=== PATIENT | female | born 1955 | race African-American/Black ===

== ENCOUNTER 2019-05-17 06:52 | Day surgery (SDC) | payer MEDICARE ==
[2019-05-16 10:30] VITALS: BMI 45.4
--- NOTE | 2019-05-17 08:57 | OP ---
DATE OF PROCEDURE: 05/17/2019 REASON FOR PROCEDURE: Dysphagia, odynophagia, hematemesis. PROCEDURE PERFORMED: EGD with esophageal dilation with balloon less than 30 mm. DESCRIPTION OF PROCEDURE: After the risks and benefits of the procedure were explained to the patient including risks of bleeding, infection, perforation, reactions to anesthesia, aspiration and/or pain, informed consent was obtained. The patient was then taken to the endoscopy suite, where deep sedation was administered via propofol and anesthesia support. Once the patient was placed in the left lateral decubitus position and sedation was administered with good sedation achieved, the standard gastroscope was introduced into the mouth with intubation of the esophagus, stomach, and the proximal small intestines with the findings listed below. The patient tolerated the procedure well with no immediate perioperative complications. Upon conclusion of the procedure, all equipment was removed from the patient and she was transferred to Day Stay in satisfactory condition. FINDINGS: Esophagus; normal-appearing mucosa was seen in both the proximal and mid esophagus; however, a large hiatal hernia and a possible esophageal stricture were seen in the distal esophagus. The esophageal stricture was located at approximately 33 cm past the incisors that was easily traversed with the standard gastroscope. Using a TTS CRE esophageal balloon, it was dilated to a maximum diameter of 18 mm in size with no significant change in the esophageal mucosa afterwards. The diaphragmatic pinch was seen at 40 cm while the gastroesophageal junction was well seen at 34 cm denoting a 6 cm hiatal hernia. There were also mild erosive changes seen in the distal esophagus at the gastroesophageal junction, extending proximally around 5 to 10 mm, but not extending between folds, otherwise there was no evidence of ulcerations, mass lesions, or active/recent bleeding. Stomach; normal-appearing mucosa was seen in the gastric fundus, body, greater curvature, antrum, and incisura. On gastric retroflexion, a large hiatal hernia was again visualized within the gastric cardia with possible paraesophageal component, but difficult to tell. Otherwise, there was no evidence of erosions, ulcerations, mass lesions, Pal's erosions, or active/recent bleeding. Duodenum; normal-appearing mucosa was seen in both the duodenal bulb and second portion of the duodenum. There was no evidence of erosions, ulcerations, mass lesions, or active/recent bleeding. IMPRESSION: 1. Large hiatal hernia (6 cm) with tortuosity of the distal esophagus, likely contributing to her dysphagia. 2. LA grade A reflux mediated erosive esophagitis. 3. Possible distal esophageal stricture at 33 cm, dilated to 18 mm in diameter with no significant change of the esophageal mucosa. 4. No evidence of active/recent bleeding. RECOMMENDATIONS: 1. We will continue the patient on pantoprazole 40 mg daily for erosive esophagitis. 2. We would refer the patient to the General Surgery Service for possible surgical correction of a large hiatal hernia generating symptoms. 3. We would proceed with an esophageal barium swallow for further delineation of the anatomy and possible paraesophageal component to her hiatal hernia. 4. Recommend adequate chewing of food prior to swallowing. 5. Would have the patient follow up in the GI Clinic in 6 weeks for further followup of her dysphagia and hematemesis. Job ID: [id number]
[2019-05-17] MEDS ORDERED: Lidocaine 1% PF 5 ML VIAL ONE (10:47)
[2019-05-17] MEDS ORDERED: PROPOFOL 200 MG/20 ML VIAL ONE (10:47)
== END 2019-05-17 09:40 | disposition home or self-care (01) ==
LOC: SDC 06:52
PROVIDERS: ATTEND Internal Medicine
PROC: 0D758ZZ Dilation of Esophagus, Via Natural or Artificial Opening Endoscopic (ICD-10-PCS; principal; 2019-05-17)
DX: R13.10 Dysphagia, unspecified (principal); K21.0 Gastro-esophageal reflux disease with esophagitis; K44.9 Diaphragmatic hernia without obstruction or gangrene; K92.0 Hematemesis; I10 Essential (primary) hypertension; E78.5 Hyperlipidemia, unspecified; E11.9 Type 2 diabetes mellitus without complications; J30.2 Other seasonal allergic rhinitis; M19.90 Unspecified osteoarthritis, unspecified site; F17.200 Nicotine dependence, unspecified, uncomplicated; E66.01 Morbid (severe) obesity due to excess calories; Z68.41 Body mass index [BMI] 40.0-44.9, adult; Z79.82 Long term (current) use of aspirin; Z79.899 Other long term (current) drug therapy

== ENCOUNTER 2019-06-26 13:00 | Outpatient (CLI) | payer OTHER | END 2019-06-26 13:01 | disposition home or self-care (01) | LOC: DTY/OP 13:00 | PROVIDERS: ATTEND Specialist | DX: Z01.818 Encounter for other preprocedural examination (principal); E66.01 Morbid (severe) obesity due to excess calories | CPT/HCPCS: 97802 ==

== ENCOUNTER 2019-07-13 03:53 | Outpatient (CLI) | payer MEDICARE, OTHER ==
[2019-07-13 17:38] LABS: SARS-CoV-2 MS2 Positive; SARS-CoV-2 N Gene Negative; SARS-CoV-2 S Gene Negative; SARS-CoV-2 orf1ab Negative
== END 2019-07-13 03:54 | disposition home or self-care (01) ==
LOC: ERS 03:53
PROVIDERS: ATTEND Specialist
DX: Z01.812 Encounter for preprocedural laboratory examination (principal); Z11.59 Encounter for screening for other viral diseases
CPT/HCPCS: 36415; 80053; 80061; 82306; 82607; 82728; 82746; 83036; 83540; 83970; 84425; 84436; 84443; 84480; 85025; 87635; U0003

== ENCOUNTER 2019-07-18 10:10 | Outpatient (CLI) | payer MEDICARE ==
--- NOTE | 2019-07-18 12:16 | RAD ---
EXAM: XR UGI Single Contrast No Air PROVIDED CLINICAL HISTORY: Hiatal hernia. Gastroesophageal reflux. Morbid obesity. COMPARISON: None FINDINGS: A single contrast upper GI was performed as requested. Normal primary esophageal peristalsis is demon strated without evidence of tertiary contractions. No focal area of narrowing is seen in the esophagus. A small hiatal hernia is present. The stomach is incompletely distended but otherwise grossly within normal limits. The duodenal bulb, duodenum, and visualized proximal small bowel demonstrate a normal appearance. No gastroesophageal reflux was demonstrated during this exam. IMPRESSION: 1. Small hiatal hernia. No gastroesophageal reflux was demonstrated during the exam.
== END 2019-07-18 10:11 | disposition home or self-care (01) ==
LOC: RAD 10:10
PROVIDERS: ATTEND Specialist
DX: E66.01 Morbid (severe) obesity due to excess calories (principal); K44.9 Diaphragmatic hernia without obstruction or gangrene
CPT/HCPCS: 74240

== ENCOUNTER 2019-08-23 11:13 | Inpatient (IN) | payer MEDICARE ==
[2019-08-30 11:15] VITALS: BMI 46.5
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
[2019-09-06] MEDS ORDERED: Bupivacaine 0.25% HCL 30 ML VIAL ONE (07:22)
[2019-09-06] MEDS ORDERED: Lidocaine 1% w/Epinephrine 1:100K 20 ML VIAL ONE (07:23)
[2019-09-06] MEDS ORDERED: Acetaminophen 500 MG TAB ONE (07:32)
[2019-09-06] MEDS ORDERED: Heparin 5,000 UNITS/ML VIAL ONE (07:32)
[2019-09-06] MEDS ORDERED: Scopolamine 1.5 mg/72 hour Patch ONE (07:33)
[2019-09-06] MEDS ORDERED: SUGAMMADEX SODIUM 500 MG/5 ML VIAL ONE (07:43)
[2019-09-06] MEDS ORDERED: Fentanyl 100 MCG/2 ML VIAL ONE ×2 (07:43→12:05)
[2019-09-06] MEDS ORDERED: Rocuronium Bromide 50 MG/5 ML VIAL ONE (10:24)
[2019-09-06] MEDS ORDERED: Rocuronium Bromide 10 MG/ML (10ML VIAL) ONE (10:52)
[2019-09-06] MEDS ORDERED: PROPOFOL 200 MG/20 ML VIAL ONE (10:52)
[2019-09-06] MEDS ORDERED: Dexamethasone 20 MG/5 ML VIAL ONE (10:52)
[2019-09-06] MEDS ORDERED: Ondansetron PF 4 MG/2 ML Vial ONE ×2 (10:52→11:46)
[2019-09-06] MEDS ORDERED: Ketorolac Tromethamine 30 MG/ML VIAL ONE (10:52)
[2019-09-06] MEDS ORDERED: Lidocaine 1% PF 5 ML VIAL ONE (10:52)
[2019-09-06] MEDS ORDERED: PHENYLEPHRINE-NS 100 MCG/ML 10 ML SYRINGE ONE (10:52)
[2019-09-06] MEDS ORDERED: Morphine 2 MG/ML VIAL SLOW IVP PRN (11:46)
[2019-09-06] MEDS ORDERED: Promethazine HCl 25 MG/ML VIAL ONE (11:46)
[2019-09-06] MEDS ORDERED: Dextrose 50% Abboject 50 ML SYRINGE SLOW IVP PRN (11:46)
[2019-09-06] MEDS ORDERED: Hydrocodone-Acetamin 15 ML UDCUP PO PRN (11:46)
[2019-09-06] MEDS ORDERED: Morphine 4 MG/ML VIAL SLOW IVP PRN (11:46)
[2019-09-06] MEDS ORDERED: Ondansetron PF 4 MG/2 ML Vial IVP PRN (11:46)
[2019-09-06] MEDS ORDERED: hydrALAZINE 20 MG/ML VIAL SLOW IVP PRN (11:46)
[2019-09-06] MEDS ORDERED: diphenhydrAMINE 50 MG/ML VIAL IVP PRN (11:46)
[2019-09-06] MEDS ORDERED: HumaLOG 300 UNITS/3 ML VIAL SC PRN (11:46)
[2019-09-06] MEDS ORDERED: Dextrose 5% in Water 1,000 ML IV PRN (11:46)
[2019-09-06] MEDS ORDERED: Ondansetron ODT 8 MG TAB SL PRN (11:49)
[2019-09-06] MEDS ORDERED: Ondansetron ODT 8 MG TAB PO PRN (11:49)
[2019-09-06] MEDS: Ketorolac Tromethamine 30 MG/ML VIAL IVP SCH ×2 (13:03→18:09)
--- NOTE | 2019-09-06 14:55 | OP ---
DATE OF PROCEDURE: 09/06/2019 PREOPERATIVE DIAGNOSES: 1. Metabolic syndrome. 2. Morbid obesity with 294 pounds and 49 BMI. 3. Gastroesophageal reflux disease. 4. Esophageal stricture status post dilatation by GI. 5. Diabetes mellitus. 6. Hypertension. 7. Asthma. 8. Hiatal hernia. PROCEDURE PERFORMED: 1. Laparoscopic hiatal hernia repair. 2. Laparoscopic Carlos-en-Y gastric bypass, 150 cm Carlos limb antecolic, 25 mm EEA stapler, checked under water without leak. NOC ENGINEER: Mary Alba, certified environmental engineering assistant. ESTIMATED BLOOD LOSS: Less than 10 mL. BLOOD TRANSFUSION: None. FINDINGS: The liver was malleable and floppy and not a problem. No other gross abnormalities noted. DESCRIPTION OF PROCEDURE: The patient was taken to the operating room where under general anesthesia, abdomen was prepared with ChloraPrep and draped in routine fashion. Local anesthetic with 0.5% Marcaine 30 mL mixed with 2% Xylocaine with epinephrine 20 mL mixture was infiltrated into the skin and subcutaneous tissue about all operative sites. Supraumbilical midline incision made. Pneumoperitoneum to 15 mmHg was obtained with a Veress needle, replacing with a 5 port, video laparoscope inserted. Bilateral upper abdominal incisions made at subcostal lines, left and right, placing a 15 and 12 mm port respectively. 5 mm port was placed in left lateral subcostal. Omentum split in the midline to the left of the falciform ligament up to the colon and reflected cephalad. Ligament of Treitz identified, and about 20 cm from the ligament of Treitz, the small bowel was divided with a ADELAIDA white load and the mesentery divided with the ADELAIDA white load. Hemostasis was gained with cautery. The Carlos limb was devascularized, taking down the mesentery adjacent involved the small bowel about 5 cm. The Carlos limb was then measured 150 cm and a jejunojejunostomy performed with 3 fires of Endo ADELAIDA white load stapler. Mesenteric defect closed with 3-0 Vicryl. The Carlos limb was then placed superiorly between the omental split and the omentum was directed caudally as the patient was placed in reverse Trendelenburg. We then placed the liver retractor through the subxiphoid incision using the Kannan liver retractor and Kannan arm. Liver was viable and not fatty. Hiatal hernia was identified. The left and right crura dissected free circumferentially using the LigaSure, taken down mediastinal adhesions. Once the stomach was reduced into the abdominal cavity, and at least 4 to 5 cm of esophagus was in the abdominal cavity and the posterior crura identified. Two posterior crural sutures of 0 Ethibond placed with the Endo suture passer. Adequate space was left in the hiatus to prevent dysphagia. Gastric bypass was then undertaken. Lesser sac was identified about 5 cm from the GE junction in between 2 major veins of the gastrohepatic ligament, taken down with the LigaSure and the lesser sac entered. Posterior stomach identified and all orogastric tubes removed and then the ADELAIDA blue load stapler fired transversely, creating the initial fire at the gastric pouch. Once this was completed, an opening made in the stomach near the greater curvature just laterally inferior to the initial fire staple line. An opening made in the stomach and a 25 mm anvil placed, attached to a suture, placed up to the gastric pouch. This suture was then passed through the suture passer, which was directed through the opening in the stomach up to the gastric pouch anterior to the staple line, where a small incision was made using cutting hook current, bringing the anvil out of the stomach, grasping the suture and properly placing it out of the stomach. The defect in the stomach was then closed with 2 fires of the ADELAIDA blue load stapler and good closure with hemostatic was noted. At this point, the gastric pouch was formed by several fires of the blue load ADELAIDA stapler, angling the stapler vertically, 4 cm away from the angle of His left lateral, completely dividing the stomach, creating the gastric pouch. Once this was completed, the Carlos limb was brought up into position and an opening made in the Carlos limb devascularized segment and a 25-mm EEA stapling device placed through the left upper quadrant 15-mm port site and directed into the stomach, properly positioned, and the spike brought out through the antimesenteric border under direct visualization, visualizing the orange portion of the stapler. The spike was removed from the anvil and gastric pouch and these were mated within the proper position and stapler approximated with a torque fire range, fired and released, and removed and complete donuts noted. Good anastomosis noted. The open end of the bowel was then divided with a ADELAIDA white load stapler, leaving a well-vascularized Carlos limb. Once this was accomplished, the segment of bowel was removed and discarded. Three sutures were placed antitension 3-0 Vicryl, 1 right anterior lateral, the other left anterior lateral and left posterior lateral, securing seromuscular approximation of the stomach pouch in the jejunum. Anesthesia then placed orogastric tube down to the gastric pouch, passed into anastomosis of the jejunum and jejunum was clamped with a vascular clamp and the patient placed in relatively flat position and stomach pouch inflated with air through an orogastric tube, and the small bowel and stomach distended and checked under water and there was no leak. Orogastric tube was removed. Good hemostasis noted. Liver retractor removed. Irrigant and pneumoperitoneum evacuated after the 15-mm port site approximated with 0 Vicryl and GraNee needle device, [id number]. All instruments were removed and all skin incisions were closed with subcu suture of 4-0 Monocryl after irrigating the wounds copiously with saline solution. [place] glue applied. The patient tolerated the procedure well. Job ID: [id number]
[2019-09-06] MEDS: Lactated Ringer's 1,000 ML IV SCH (15:40)
[2019-09-06] MEDS ORDERED: Enoxaparin Sodium 40 MG/0.4 ML SYRINGE SC SCH (21:00)
[2019-09-07] MEDS: Ketorolac Tromethamine 30 MG/ML VIAL IVP SCH ×4 (00:03→17:08)
[2019-09-07] MEDS: Lactated Ringer's 1,000 ML IV SCH ×4 (00:22→14:28)
[2019-09-07 05:30] LABS: #Lymphocytes 1.4 thou/uL (1.20-3.40); #Monocytes 0.6 thou/uL (0.11-0.59); #Neutrophils 9.5 thou/uL (1.40-6.50); %Basophils 0.1 % (0.0-1.0); %Lymphocytes 12.2 % (21.0-51.0); %Monocytes 4.8 % (0.0-10.0); %Neutrophils 82.9 % (42.0-75.0); Hemoglobin 11.7 g/dL (12.0-16.0); Mean Corpuscular HGB CONC 30.8 g/dL (32.0-36.0); Mean Corpuscular Hemoglobin 29.1 pg (27.0-31.0); Mean Corpuscular Volume 94.4 fL (78.0-98.0); Mean Platelet Volume 8.8 fL (7.4-10.4); Platelet Count 234 thou/uL (130-400); RBC Distribution Width 13.9 % (11.5-14.5); Red Blood Cell (RBC) Count 4.02 mill/uL (4.20-5.40); White Blood Cell (WBC) Count 11.4 thou/uL (4.8-10.8)
[2019-09-07 05:56] LABS: Anion Gap 13 mmol/L (10-20); BUN (Urea Nitrogen) 38 mg/dL (9.8-20.1); Calc. Creatinine Clearance 71 mL/min (70-130); Carbon Dioxide 25 mmol/L (23-31); Chloride 104 mmol/L (98-107); Estimated GFR-MDRD 38; Glucose 122 mg/dL (80-115); Potassium 4.3 mmol/L (3.5-5.1); Sodium 138 mmol/L (136-145)
[2019-09-07] MEDS ORDERED: Pantoprazole 40 MG VIAL IVP SCH (09:00)
[2019-09-07] MEDS: Acetaminophen 500 MG TAB PO PRN ×2 (10:14→16:26)
[2019-09-07] MEDS: traMADol HCl 50 MG TAB PO PRN ×2 (10:14→16:22)
[2019-09-07 16:16] VITALS: BP 107/67; TEMP 98
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
== END 2019-09-07 19:55 | disposition home or self-care (01) | DRG 621 ==
LOC: SURG A 09-06 06:54
PROVIDERS: ADMIT Specialist; ATTEND Specialist
PROC: 0D164Z9 Bypass Stomach to Duodenum, Percutaneous Endoscopic Approach (ICD-10-PCS; principal; 2019-09-06)
PROC: 0BQT4ZZ Repair Diaphragm, Percutaneous Endoscopic Approach (ICD-10-PCS; 2019-09-06)
DX: E66.01 Morbid (severe) obesity due to excess calories (principal); E88.81 Metabolic syndrome and other insulin resistance; K21.9 Gastro-esophageal reflux disease without esophagitis; K22.2 Esophageal obstruction; J45.909 Unspecified asthma, uncomplicated; K59.00 Constipation, unspecified; E78.5 Hyperlipidemia, unspecified; E11.22 Type 2 diabetes mellitus with diabetic chronic kidney disease; I12.9 Hypertensive chronic kidney disease with stage 1 through stage 4 chronic kidney disease, or unspecified chronic kidney disease; N18.9 Chronic kidney disease, unspecified; K44.9 Diaphragmatic hernia without obstruction or gangrene; Z68.42 Body mass index [BMI] 45.0-49.9, adult
CPT/HCPCS: 36415; 36416; 80048; 85025; 93005; 93010; 94760; C9113; J0694; J1100; J1644; J1650; J1885; J2405; J2550; J2704; J3010; S0020

== ENCOUNTER 2019-09-01 06:20 | Outpatient (CLI) | payer MEDICARE, OTHER ==
[2019-09-01 15:42] LABS: Anion Gap 17 mmol/L (10-20); BUN (Urea Nitrogen) 28 mg/dL (9.8-20.1); Calc. Creatinine Clearance 0 mL/min (70-130); Calcium 10.5 mg/dL (7.8-10.44); Carbon Dioxide 25 mmol/L (23-31); Chloride 105 mmol/L (98-107); Estimated GFR-MDRD 48; Glucose 134 mg/dL (80-115); Potassium 4.7 mmol/L (3.5-5.1); Sodium 142 mmol/L (136-145)
[2019-09-02 12:14] LABS: SARS-CoV-2 MS2 Positive; SARS-CoV-2 N Gene Negative; SARS-CoV-2 S Gene Negative; SARS-CoV-2 orf1ab Negative
== END 2019-09-01 06:21 | disposition home or self-care (01) ==
LOC: LABBT 06:20
PROVIDERS: ATTEND Specialist
DX: Z01.812 Encounter for preprocedural laboratory examination (principal); Z11.59 Encounter for screening for other viral diseases; E66.01 Morbid (severe) obesity due to excess calories
CPT/HCPCS: 80048; U0003; 87635

== ENCOUNTER 2020-01-23 06:43 | Outpatient (CLI) | payer MEDICARE ==
[2020-01-23 14:47] LABS: #Eosinphils 0.2 10x3/uL (0.0-0.5); #Monocytes 0.5 10x3/uL (0.0-1.1); #Neutrophils 3.4 10x3/uL (1.5-8.4); %Basophils 0.4 % (0.0-2.0); %Eosinophils 2.8 % (0.0-6.0); %Lymphocytes 41.5 % (18.0-47.0); Mean Corpuscular HGB CONC 31.9 G/DL (32.0-36.0); Mean Corpuscular Hemoglobin 29.8 PG (27.0-33.0); Mean Corpuscular Volume 93.3 fl (80.0-100.0); Mean Platelet Volume 11.5 fl (7.4-10.4); Platelet Count 268 10x3/uL (130-400); RBC Distribution Width 15.3 % (11.5-14.5); Red Blood Cell (RBC) Count 4.36 10x6/uL (3.90-5.20); White Blood Cell (WBC) Count 7.2 10x3/uL (4.5-11.0)
[2020-01-23 15:04] LABS: ALT (SGPT) 16 U/L (8-55); AST (SGOT) 18 U/L (5-34); Albumin 3.8 g/dL (3.4-4.8); Alkaline Phosphatase 68 U/L (40-110); Anion Gap 13 mmol/L (10-20); BUN (Urea Nitrogen) 13 mg/dL (9.8-20.1); Bilirubin, Total 0.4 mg/dL (0.2-1.2); Calc. Creatinine Clearance 0 mL/min (70-130); Calcium 9.2 mg/dL (7.8-10.44); Carbon Dioxide 33 mmol/L (23-31); Chloride 102 mmol/L (98-107); Globulin 2.4 g/dL (2.4-3.5); Glucose 105 mg/dL (80-115); Protein, Total 6.2 g/dL (6.0-8.3); Sodium 145 mmol/L (136-145)
[2020-01-24 02:56] LABS: SARS-CoV-2 MS2 Positive; SARS-CoV-2 N Gene Negative; SARS-CoV-2 S Gene Negative; SARS-CoV-2 by NAA Not Detected (NotDetected); SARS-CoV-2 orf1ab Negative
== END 2020-01-23 06:44 | disposition home or self-care (01) ==
LOC: LABBT 06:43
PROVIDERS: ATTEND Specialist
DX: Z01.812 Encounter for preprocedural laboratory examination (principal); K80.20 Calculus of gallbladder without cholecystitis without obstruction; Z20.828 Contact with and (suspected) exposure to other viral communicable diseases
CPT/HCPCS: 80053; 85025; U0003; 87635

== ENCOUNTER 2020-01-26 09:03 | Day surgery (SDC) | payer MEDICARE ==
--- NOTE | 2020-01-25 05:45 | HP ---
HISTORY OF PRESENT ILLNESS: Amanda Naqvi is a 64-year-old female, followup laparoscopic gastric bypass on 09/06/2019. She has severe reflux. Since that surgery, she has lost a total of 48 pounds, 30% excess body weight loss, starting BMI of 49, 294 pounds, currently 246 pounds, 40 BMI. She has had been having epigastric pain postprandial. Ultrasound at [facility] reveals gallstones, normal bile duct caliber. I have recommended laparoscopic video cholecystectomy. I have discussed with her risks and benefits of surgery. I have encouraged her since she has symptomatic gallstones to pursue laparoscopic cholecystectomy to avoid complications of cholelithiasis, including pancreatitis, choledocholithiasis, which will be difficult to treat considering her change in anatomy after gastric bypass. She understands risks and benefits. She will call us when she is ready to schedule her laparoscopic cholecystectomy. Patient is due for 3-month bariatric labs and we have ordered those. She states that she is taking her vitamins and PPIs. She has resolved her hypertension and reflux. Blood pressure today is 154/73. MEDICATIONS: 1. Lisinopril. 2. Aspirin. 3. Protonix. 4. Symbicort. PAST MEDICAL HISTORY: Diabetes, hypertension, allergies, and arthritis. She has stopped her oral hypoglycemics after this weight loss. PAST SURGICAL HISTORY: Ectopic ; left arm scar, gastric bypass, laparoscopic 09/06/2019. FAMILY HISTORY: Noncontributory. REVIEW OF SYSTEMS: Noncontributory. PHYSICAL EXAMINATION: VITAL SIGNS: 246 pounds, 40 BMI, 154/73, 78, and 97.7 degrees. HEAD, EARS, EYES, NOSE, AND THROAT: Unremarkable. Sclerae nonicteric. SKIN: Nonjaundiced. LUNGS: Clear to auscultation. CARDIAC: Regular rate and rhythm, without murmur or gallop. ABDOMEN: Soft, obese, nontender. Laparoscopic scars well healed. No hernias. EXTREMITIES: Unremarkable. ASSESSMENT AND PLAN: 1. Morbid obesity, status post gastric bypass with successful weight loss of 48 pounds, 30% excess body weight three months postop. She has resolved her diabetes and hypertension. 2. Gallstones. We recommend laparoscopic cholecystectomy. She understands risks and benefits, consents. She will call us to schedule that. Job ID: [id number]
[2020-01-25 11:01] VITALS: BMI 39.0
[2020-01-26] MEDS ORDERED: Scopolamine 1.5 mg/72 hour Patch ONE (09:45)
[2020-01-26] MEDS ORDERED: Acetaminophen 500 MG TAB ONE (09:45)
[2020-01-26] MEDS ORDERED: Ondansetron PF 4 MG/2 ML Vial ONE (10:20)
[2020-01-26] MEDS ORDERED: Rocuronium Bromide 10 MG/ML (10ML VIAL) ONE (10:20)
[2020-01-26] MEDS ORDERED: PROPOFOL 200 MG/20 ML VIAL ONE (10:20)
[2020-01-26] MEDS ORDERED: Dexamethasone 20 MG/5 ML VIAL ONE (10:20)
[2020-01-26] MEDS ORDERED: Glycopyrrolate 0.2 MG/ML 5 ML SYRINGE ONE (10:20)
[2020-01-26] MEDS ORDERED: Ketorolac Tromethamine 30 MG/ML VIAL ONE (11:31)
[2020-01-26] MEDS ORDERED: Fentanyl 100 MCG/2 ML VIAL ONE ×2 (12:06→13:55)
[2020-01-26] MEDS ORDERED: Bupivacaine PF 0.5% 30 ML VIAL ONE (12:12)
[2020-01-26] MEDS ORDERED: EPINEPHrine 1 MG/ML AMP ONE (12:12)
[2020-01-26] MEDS ORDERED: Bupivacaine 0.25% HCL 30 ML VIAL ONE (12:12)
[2020-01-26] MEDS ORDERED: Famotidine/PF 20 mg/2ml Vial ONE (13:46)
--- NOTE | 2020-01-26 13:51 | OP ---
DATE OF PROCEDURE: 01/26/2020 PREOPERATIVE DIAGNOSES: Chronic cholecystitis, cholelithiasis. POSTOPERATIVE DIAGNOSES: Chronic cholecystitis, cholelithiasis. PROCEDURE PERFORMED: Laparoscopic video cholecystectomy. ANESTHESIA: General, local 0.5% Marcaine 30 mL with epi. DESCRIPTION OF PROCEDURE: The patient was taken to the operating room, where under general anesthesia, abdomen was prepared with ChloraPrep and draped in routine fashion. Local anesthetic was infiltrated in the skin and subcutaneous tissue about the operative site. The patient was morbidly obese. Thus, a supraumbilical midline incision made, pneumoperitoneum to 15 mmHg obtained with a Veress needle, replaced with a 5 port, video laparoscope inserted. Right subxiphoid incision was made and 11 port placed, right subcostal incision made in midclavicular and anterior axillary line, and a 5 mm port was placed. Gallbladder was large and redundant. Liver appeared to be normal. Fundus was grasped and retracted cephalad. Infundibulum was grasped and retracted laterally. Cystic artery and duct dissected free. Critical view obtained. Cystic artery and duct doubly clipped proximally and divided. Gallbladder dissected free from liver bed, obtaining good hemostasis prior to division of final peritoneal attachments. Gallbladder and contents removed, submitted to Pathology. Good hemostasis ensured. Irrigant and pneumoperitoneum were evacuated. All instruments were removed and all skin incisions were approximated with interrupted subdermal 4-0 Monocryl and [place] glue applied. Job ID: [id number]
[2020-01-26] MEDS ORDERED: Promethazine HCl 25 MG/ML VIAL ONE (13:52)
== END 2020-01-26 15:50 | disposition home or self-care (01) ==
LOC: SDC 09:03
PROVIDERS: ATTEND Specialist
PROC: 0FT44ZZ Resection of Gallbladder, Percutaneous Endoscopic Approach (ICD-10-PCS; principal; 2020-01-26)
DX: K80.10 Calculus of gallbladder with chronic cholecystitis without obstruction (principal); K21.9 Gastro-esophageal reflux disease without esophagitis; E11.9 Type 2 diabetes mellitus without complications; I10 Essential (primary) hypertension; M19.90 Unspecified osteoarthritis, unspecified site; E66.01 Morbid (severe) obesity due to excess calories; F17.210 Nicotine dependence, cigarettes, uncomplicated; Z68.39 Body mass index [BMI] 39.0-39.9, adult; Z79.82 Long term (current) use of aspirin; Z79.899 Other long term (current) drug therapy
CPT/HCPCS: 88304; J0171; J0690; J1100; J1885; J2405; J2550; J2704; J3010; S0020; S0028

== ENCOUNTER 2020-07-10 11:11 | Outpatient (CLI) | payer MEDICARE ==
[~2020-07-10 11:11] MED LIST: Iopamidol-370 76% 500 ML 1 ML ONE
== END 2020-07-10 11:12 | disposition home or self-care (01) ==
LOC: BICCT 11:11
PROVIDERS: ATTEND Specialist
DX: R10.13 Epigastric pain (principal); K22.2 Esophageal obstruction; Z90.49 Acquired absence of other specified parts of digestive tract; K57.30 Diverticulosis of large intestine without perforation or abscess without bleeding
CPT/HCPCS: 74177; 82565; Q9967

== ENCOUNTER 2020-07-10 11:42 | Outpatient (CLI) | payer MEDICARE | END 2020-07-10 11:43 | disposition home or self-care (01) | LOC: BICMAMMO 11:42 | PROVIDERS: ATTEND Family Medicine | DX: Z12.31 Encounter for screening mammogram for malignant neoplasm of breast (principal) | CPT/HCPCS: 77063; 77067 ==